=== PATIENT | male | born 1955 | race African-American/Black ===

== ENCOUNTER 2017-12-13 10:42 | Outpatient (CLI) | payer OTHER ==
--- NOTE | 2017-12-13 16:14 | RAD ---
CHEST TWO VIEWS: 12/13/17 No prior films were available for comparison. The lungs are mildly hyperexpanded but clear. No lobar consolidation or effusion was seen. Some apica l scarring and pleural thickening is noted bilaterally. No pulmonary masses were seen. The mediastinu m appears normal and the trachea is midline. IMPRESSION: Some chronic changes as listed above. No acute findings. POS: HOME
== END 2017-12-13 10:43 | disposition home or self-care (01) ==
LOC: BURRAD 10:42
PROVIDERS: ATTEND Nurse Practitioner
DX: F17.200 Nicotine dependence, unspecified, uncomplicated (principal)
CPT/HCPCS: 71046

== ENCOUNTER 2019-06-08 14:51 | Emergency (ER) | payer OTHER ==
--- NOTE | 2019-06-08 17:17 | RAD ---
CHEST TWO VIEWS: 06/08/19 Comparison is made with a 12/13/17 study. The heart is normal in size. The lungs are mildly hyperexpanded but clear. There has been no adverse change since the prior study. The mediastinum was unremarkable. IMPRESSION: Slightly hyperexpanded lungs but no acute findings. POS: HOME
== END 2019-06-08 15:33 | disposition home or self-care (01) ==
LOC: BURERS 14:51
DX: S20.211A Contusion of right front wall of thorax, initial encounter (principal); J06.9 Acute upper respiratory infection, unspecified; F17.210 Nicotine dependence, cigarettes, uncomplicated; V89.2XXA Person injured in unspecified motor-vehicle accident, traffic, initial encounter
CPT/HCPCS: 71046

== ENCOUNTER 2020-12-30 18:56 | Emergency (ER) | payer OTHER ==
[2020-12-30] MEDS ORDERED: Boostrix 0.5 ML (Tdap) VIAL ONE (19:52)
[2020-12-30] MEDS ORDERED: Ketorolac Tromethamine 60 MG/2 ML VIAL ONE (19:52)
== END 2020-12-30 21:00 | disposition home or self-care (01) ==
LOC: BURERS 18:56
DX: S40.012A Contusion of left shoulder, initial encounter (principal); S80.01XA Contusion of right knee, initial encounter; S00.01XA Abrasion of scalp, initial encounter; S50.812A Abrasion of left forearm, initial encounter; S90.812A Abrasion, left foot, initial encounter; S00.31XA Abrasion of nose, initial encounter; M54.2 Cervicalgia; F17.210 Nicotine dependence, cigarettes, uncomplicated; Z23 Encounter for immunization; V40.5XXA Car driver injured in collision with pedestrian or animal in traffic accident, initial encounter; Y92.410 Unspecified street and highway as the place of occurrence of the external cause
CPT/HCPCS: 70450; 72125; 90471; 90715; 96372; J1885